=== PATIENT | female | born 1970 | race Caucasian/White ===

== ENCOUNTER 2023-10-02 12:16 | Outpatient (RCR) | payer OTHER, SELFPAY | END 2023-10-02 23:59 | disposition home or self-care (01) | LOC: RPT 12:16 | PROVIDERS: ATTENDING PHYSICIAN Internal Medicine Hematology & Oncology; FAMILY PHYSICIAN Nurse Practitioner Adult Health | DX: I97.2 Postmastectomy lymphedema syndrome (principal); C50.412 Malignant neoplasm of upper-outer quadrant of left female breast; M62.81 Muscle weakness (generalized); G62.9 Polyneuropathy, unspecified; L90.5 Scar conditions and fibrosis of skin; M25.512 Pain in left shoulder; R29.3 Abnormal posture | CPT/HCPCS: 97110; 97140; 97163; 97530 ==

== ENCOUNTER 2023-11-03 06:34 | Outpatient (RCR) | payer OTHER, SELFPAY | END 2023-11-03 23:59 | disposition home or self-care (01) | LOC: RPT 06:34 | PROVIDERS: ATTENDING PHYSICIAN Internal Medicine Hematology & Oncology; FAMILY PHYSICIAN Nurse Practitioner Adult Health | DX: I97.2 Postmastectomy lymphedema syndrome (principal); M62.81 Muscle weakness (generalized); M25.512 Pain in left shoulder; G62.9 Polyneuropathy, unspecified; L90.5 Scar conditions and fibrosis of skin; R29.3 Abnormal posture; C50.412 Malignant neoplasm of upper-outer quadrant of left female breast | CPT/HCPCS: 97110; 97112; 97140; 97530; 97760 ==

== ENCOUNTER 2023-11-22 09:07 | Outpatient (RCR) | payer OTHER, SELFPAY | END 2023-11-22 23:59 | disposition home or self-care (01) | LOC: RPT 09:07 | PROVIDERS: ATTENDING PHYSICIAN Internal Medicine Hematology & Oncology; FAMILY PHYSICIAN Nurse Practitioner Adult Health | DX: I97.2 Postmastectomy lymphedema syndrome (principal); C50.412 Malignant neoplasm of upper-outer quadrant of left female breast; M62.81 Muscle weakness (generalized); G62.9 Polyneuropathy, unspecified; L90.5 Scar conditions and fibrosis of skin; M25.512 Pain in left shoulder; R29.3 Abnormal posture | CPT/HCPCS: 97110; 97112; 97140 ==

== ENCOUNTER 2023-12-22 09:19 | Outpatient (RCR) | payer OTHER, SELFPAY | END 2023-12-22 23:59 | disposition home or self-care (01) | LOC: RPT 09:19 | PROVIDERS: ATTENDING PHYSICIAN Internal Medicine Hematology & Oncology; FAMILY PHYSICIAN Nurse Practitioner Adult Health | DX: I97.2 Postmastectomy lymphedema syndrome (principal); L90.5 Scar conditions and fibrosis of skin; M62.81 Muscle weakness (generalized); R29.3 Abnormal posture; C50.412 Malignant neoplasm of upper-outer quadrant of left female breast | CPT/HCPCS: 97110; 97140; 97530 ==

== ENCOUNTER 2024-01-18 08:07 | Outpatient (RCR) | payer OTHER, SELFPAY | END 2024-01-18 08:59 | disposition home or self-care (01) | LOC: RPT 08:07 | PROVIDERS: ATTENDING PHYSICIAN Internal Medicine Hematology & Oncology; FAMILY PHYSICIAN Nurse Practitioner Adult Health | DX: I97.2 Postmastectomy lymphedema syndrome (principal); C50.412 Malignant neoplasm of upper-outer quadrant of left female breast; M25.512 Pain in left shoulder | CPT/HCPCS: 97530 ==